=== PATIENT | female | born 1995 | race Hispanic/Latino ===

== ENCOUNTER 2022-12-19 12:01 | Emergency (ER) | payer OTHER, SELFPAY ==
[2022-12-19] MEDS ORDERED: Ondansetron ODT 4 MG TAB ONE (12:47)
== END 2022-12-19 13:48 | disposition home or self-care (01) ==
LOC: MADERS 12:01
DX: R11.2 Nausea with vomiting, unspecified (principal); F10.129 Alcohol abuse with intoxication, unspecified
CPT/HCPCS: 99283; Q0162